=== PATIENT | male | born 1960 | race Caucasian/White ===

== ENCOUNTER → 2021-08-25 12:55 | Outpatient (CLI) | payer OTHER, SELFPAY ==
--- NOTE | 2021-08-25 13:22 | DI.RAD.S_ITS ---
PROCEDURE: XR CHEST 2V INDICATIONS: CHEST CONGESTION TECHNIQUE: 2 views of the chest were acquired. COMPARISON: None. FINDINGS: Surgical changes and devices: None. Lungs and pleura: Interstitium is diffusely prominent. Left basilar pleural effusion and left mid/basilar airspace opacity. No pneumothorax. Mediastinum: Mediastinal contours are normal. Heart size is difficult to assess secondary to the opacity at the left lung base. Bones and chest wall: No suspicious bony abnormalities. Soft tissues appear unremarkable. IMPRESSION: 1. Interstitium is prominent and edema cannot be excluded. 2. Left basilar pleural effusion and mid/basilar airspace opacity consistent compressive atelectasis versus consolidation or patchy pulmonary edema. Left basilar neoplasm cannot be excluded. Continued radiographic surveillance to resolution is recommended. Dictated by: Travis Ramon [facility] Interpreted: Troy Batista MD on 08/25/2021 at 14:12 Transcribed by: GEORGE on 08/25/2021 at 14:15 Approved by: Troy Batista M.D. on 08/25/2021 at 20:00
== END ==
PROVIDERS: PCP Family Medicine; Referring Provider Family Medicine; Visit Provider Family Medicine
DX: R09.89 Other specified symptoms and signs involving the circulatory and respiratory systems (principal); J90 Pleural effusion, not elsewhere classified
CPT/HCPCS: 71046

== ENCOUNTER 2021-08-31 10:47 | Inpatient (IN) | payer OTHER, SELFPAY ==
[2021-08-31] VITALS (24 sets, daily range): BP systolic 96–162; BP diastolic 54–107; PULSE 102–115; RESP 16–34; TEMP 36.1–36.7; O2SAT 93–99; BMI 20.7
--- NOTE | 2021-08-31 | DI.ECHO.S_ITS ---
[facility] +---------+ : : [address] : : : : [id number] : : : : Phone: [phone] Echocardiogram Report + + :Name: ROSLYN TAVAREZ Study Date: 09/01/2021 Height: 74 in : :[facility] ReadingLocation: Weight: 157 lb : : Gender: Male BSA: 2.0 m2 : :: 1960 Age: 61 yrs BP: 123/77 mmHg: :Reason For Study: PERICARDIAL EFFUSION, TAMPONADE : :Ordering Physician: ANGELES, : :CALIXTO Performed By: Karen Loera : :Referring: CALIXTO REYNOSO : + + Interpretation Summary The ejection fraction is estimated to be 55-60%. Diastolic function could not be accurately assessed due to unobtainable data. The right ventricle is normal size. The right ventricular systolic function is normal. No significant valvular abnormalities. Unable to estimate PASP. There is a moderate to large pericardial effusion with evidence of early tamponade physiology however no evidence of RV diastolic collapse. Result discussed with Dr. Reynoso. Procedure: A two-dimensional transthoracic echocardiogram with color flow and Doppler was performed. The study quality was technically adequate. There is no prior echocardiogram noted for this patient. The patient was in sinus tachycardia with heart rates between 100-116 bpm during the exam. Left Ventricle: The left ventricle is normal in size and wall thickness. The ejection fraction is estimated to be 55-60%. Diastolic function could not be accurately assessed due to unobtainable data. Right Ventricle: The right ventricle is normal size. The right ventricular systolic function is normal. Atria: The left atrial size is normal. Right atrial size is normal. There is no Doppler evidence for an interatrial shunt. Mitral Valve: The mitral valve is normal in structure and function. There is no mitral regurgitation. Aortic Valve: The aortic valve is not well visualized. The aortic valve opens well. There is no aortic valve stenosis. No aortic regurgitation is present. Tricuspid Valve: The tricuspid valve is not well visualized, but is grossly normal. There is trace tricuspid regurgitation. Pulmonary artery pressures cannot be estimated because of the lack of a measurable TR jet velocity but the IVC suggests a CVP of around 15 mmHg. Pulmonic Valve: The pulmonic valve is not well visualized. There is no pulmonic valvular regurgitation. Great Vessels: The aortic root is normal size. The dimensions of the ascending aorta are normal. The IVC is dilated (diameter is greater than 2.1 cm) and it collapses less than 50% with a sniff. This suggests a high right atrial pressure of 15 mm Hg. Pericardium/ Pleura There is a moderate to large pericardial effusion noted. There is no evidence of right ventricular diastolic collapse however there is evidence of increased RV diastolic diameter with inspiration.. There is >25% inspiratory reduction in mitral peak E wave velocity. The IVC is dilated and does not collapse by 50% with forced inspiration. There is a very large left- sided pleural effusion. MMode/2D Measurements & Calculations LVIDd: 3.5 cm LVOT diam: 2.0 cm LVIDs: 2.6 cm Ao root diam: 3.3 cm FS: 26.7 % asc Aorta Diam: 3.1 cm IVSd: 0.93 cm Ao Arch Diam (Prox Trans): 3.0 cm LVPWd: 0.91 cm LV poole. diameter/BSA (cm/m^2): 1.8 LV sys. diameter/BSA (cm/m^2): 1.3 LA A2 area: 12.4 cm2 RA long axis: 4.0 cm LA A4 area: 9.1 cm2 RA area: 9.5 cm2 LA length (vol): 4.0 cm RA vol: 19.0 ml LA vol: 23.7 ml RA : 9.7 ml/m2 LA vol index: 12.1 ml/m2 IVC diam: 2.4 cm RVD1 (basal): 3.0 cm TAPSE: 1.4 cm Doppler Measurements & Calculations Ao V2 max: 129.3 cm/sec LVOT Max Cesar: 90.4 cm/sec Ao V2 mean: 96.2 cm/sec LV V1 max P.3 mmHg Ao max P.7 mmHg LV V1 VTI: 14.5 cm Ao mean P.1 mmHg DIONNE(I,D): 2.4 cm2 Ao V2 VTI: 18.4 cm DIONNE(V,D): 2.2 cm2 sev ratio: 0.79 DIONNE indexed to BSA (cm^2/m^2): 1.2 MV E max cesar: 53.0 cm/sec PA V2 max: 135.0 cm/sec MV A max cesar: 59.6 cm/sec PA V2 mean: 77.3 cm/sec MV E/A: 0.89 PA mean P.0 mmHg Med Peak E' Cesar: 8.8 cm/sec PA pr(Accel): 7.1 mmHg E/E' med: 6.0 Lat Peak E' Cesar: 6.3 cm/sec E/E' lat: 8.4 E/e' average: 7.2 MV dec time: 0.18 sec SV(LVOT): 44.9 ml Reading Physician:09:27 AM
--- NOTE | 2021-08-31 11:14 | DI.RAD.S_ITS ---
PROCEDURE: XR CHEST 2V INDICATIONS: shortness of breath TECHNIQUE: 2 views of the chest were acquired. COMPARISON: [facility], CR, XR CHEST 2V, 08/25/2021, 13:01. FINDINGS: Surgical changes and devices: None. Lungs and pleura: Large left pleural effusion, increased. Dependent left lung airspace opacity. No pleural effusion on the right. No pneumothorax. Similar hazy opacity in the left upper lobe and right lower lobe. Mild opacity in the right upper lobe. Mediastinum: Mediastinal contours are grossly similar. Heart size is obscured. Bones and chest wall: No suspicious bony abnormalities. Soft tissues appear unremarkable. IMPRESSION: Large left pleural effusion at which is increased. Scattered areas of airspace opacity. This could be due to pneumonia or atelectasis. Dictated by: Micheal Gerard M.D. on 08/31/2021 at 10:50 Approved by: Micheal Gerard M.D. on 08/31/2021 at 10:53
[2021-08-31 11:42] LABS: COVID19 -Nasal RAPID Negative (Negative)
[2021-08-31 11:46] LABS: Add Manual Diff / Slide Review NO; Basophils Absolute Auto 0 /uL (0-100); Basophils Percent Auto 0.2 % (0-2); Eosinophils Absolute Auto 0 /uL (0-450); Eosinophils Percent Auto 0.1 % (2-4); Hematocrit 34.8 % (41-53); Hemoglobin 11.7 g/dL (13.5-17.5); Lymphocytes Absolute Auto 500 /uL (1100-4500); Lymphocytes Percent Auto 4.8 % (25-40); Mean Corpuscular HGB Conc 33.8 % (30-36); Mean Corpuscular Hemoglobin 27.8 PG (26-34); Mean Corpuscular Volume 82.3 fL (80-100); Monocytes Absolute Auto 1100 /uL (0-900); Monocytes Percent Auto 10.2 % (3-14); Neutrophils Absolute Auto 8800 /uL (1500-7000); Neutrophils Percent Auto 84.7 % (50-75); Platelet Count 356 X10^3/uL (150-400); Red Blood Cell Count 4.22 X10^6/uL (4.5-5.9); Red Cell Distribution Width 14.2 % (11.6-14.8); White Blood Cell Count 10.4 X10^3/uL (4.5-11.0)
[2021-08-31 11:52] LABS: Alanine Aminotransferase 21 IU/L (<50); Albumin 3.5 g/dL (3.5-5.0); Alkaline Phosphatase 127 U/L (38-126); Aspartate Aminotransferase 37 IU/L (17-59); BUN Creatinine Ratio 23.3 (6-22); Bilirubin Total 1.2 mg/dL (0.2-1.3); Blood Urea Nitrogen 17 mg/dL (9-20); Calcium 9.2 mg/dL (8.4-10.2); Carbon Dioxide 27 mmol/L (22-32); Chloride 87 mmol/L (98-107); Estimated Glomerular Filt Rate > 60.0 mL/min (>60); Globulin 3.5 g/dL (1.7-4.1); Glucose 127 mg/dL (70-100); HEMOLYSIS < 15 (0-50); Lactate (Lactic Acid) 2.9 mmol/L (0.7-2.1); Potassium 4.3 mmol/L (3.4-5.1); Sodium 123 mmol/L (137-145)
--- NOTE | 2021-08-31 11:57 | ED_ITS ---
HPI - SOB/Dyspnea General Chief Complaint: Shortness of Breath/Dyspnea Stated Complaint: Trouble breathing- chronic pneumonia Time Seen by Provider: 08/31/21 11:48 Source: patient Mode of arrival: Family Vehicle Limitations: no limitations History of Present Illness HPI Narrative: The patient presents with fatigue, productive cough, and dyspnea. He was diagnosed with pneumonia about 3 weeks ago by his PCM. He was treated with Keflex. He has no fever chills. He has experienced a 20 lb weight loss in recent weeks. He is a long time smoker. He has no underlying cardiac or pulmonary disease. He has received COVID vaccines and a booster. He has not had active COVID. He has no headache, or sore throat. With the dyspnea, he has no orthopnea or peripheral edema. Related Data Allergies Allergy/AdvReac Type Severity Reaction Status Date / Time Penicillins Allergy Verified 08/31/21 13:05 Review of Systems Constitutional Constitutional: Reports body ache(s), Reports chills, Reports fatigue, Denies fever(s) and Denies headache(s) Comments: No headaches. Eyes Eyes: Denies change in vision ENT Ears, Nose, Mouth, and Throat: Denies vertigo, Denies dizziness, Denies headache(s), Denies sinus pressure and Denies sore throat Cardiovascular Cardiovascular: Denies chest pain, Denies rapid heart rate, Denies pedal edema, Denies edema and Reports dyspnea Respiratory Respiratory: Reports cough, Denies hemoptysis and Reports dyspnea Gastrointestinal Gastrointestinal: Denies abdominal pain, Denies loose stools and Denies nausea Genitourinary Comments: No urinary complaints. Musculoskeletal Musculoskeletal: Reports myalgias and Reports myalgias Integumentary/Breasts Skin/Breast: Denies change in pigmentation and Denies rash Neurologic Neurologic: Denies confusion, Denies vertigo, Denies dizziness and Denies headache(s) Psychiatric Psychiatric: Denies confusion and Denies depression Endocrine Endocrine: Reports fatigue Hematologic/Lymphatic On Anticoagulants: No Patient History Medical History (Updated 08/31/21 @ 18:35 by Mich Inman MD) Tobacco abuse Surgical History (Updated 08/31/21 @ 18:22 by Mich Inman MD) No significant past surgical history Social History Smoking Status: Former smoker Smoking Status: Current every day smoker tobacco type: cigarettes alcohol intake frequency: 0-2 drinks per day Substance Use Type: does not use Exam Initial Vital Signs Initial Vital Signs: Vital Signs Pulse Rate 114 H 08/31/21 11:05 Respiratory Rate 25 H 08/31/21 11:05 Pulse Oximetry 95 08/31/21 11:05 Const General: cooperative, well groomed, No anxious, frail appearing and ill appearing [facility] Head: normocephalic and atraumatic Face and sinus: normal facial exam Throat: posterior oropharynx normal Eyes General: appearance normal, both eyes and all related structures Pupils: PERRL EOM: EOM intact bilaterally Neck Neck: full ROM, supple and No JVD Chest Chest: normal inspection of the chest Resp Other: Decreased breath sounds in the left lower lung. Bilateral rales. Cardio Palpation: normal PMI Rate: regular rate Rhythm: regular rhythm Heart Sounds: S1 normal, S2 normal, no click and no murmurs GI Inspection: normal to inspection Back/Spine/Pelvis Back: normal to inspection, No back tenderness, No CVA tenderness and No ecchymosis Skin General: pallor Lesions: no lesions Rashes: no rashes Neuro General: patient alert, patient awake, patient oriented x3 and no focal motor deficits Extrem General: normal to inspection, full ROM and no pedal edema Psych Mental Status: mental status grossly normal Course Course Course Narrative: Patient has an elevated lactic acid, the WBC count is normal. He has no fever. Chest x-ray revealed a large pleural effusion, suggestive of pneumonia. CT of chest shows no evidence of PE. There is a large left pleural effusion and pericardial effusion. He has metastatic cancer, throughout his lungs, his liver and his spine. I discussed the situation with the radiologist, the primary is not obvious but he would suggest maybe the left middle lung. Findings would be amenable to a supraclavicular biopsy or liver biopsy. The patient was initially IV hydrated. Was given Rocephin and Zithromax, potentially treated for sepsis. When talking to the radiologist, he said he cannot distinguish a potential infection versus some of the probable cancer findings. Due to the pericardial effusion, IV boluses were curtailed. I discussed the clinical findings with the patient. I presented the case to the hospitalist, Dr. Sutherland. Discussion included ongoing IV antibiotics, and echo, and ultrasound-guided thoracentesis. Thoracentesis may provide a sample leading to clinical diagnosis. The patient is normotensive with a heart rate of 100 at the time of admission. O2 sats on room air are 95%. Orders Ordered: ED Orders 08/31/21 11:08 COVID19 -Nasal swab/Pre-Proc Stat 08/31/21 11:14 XR chest 2V Stat EKG-12 Lead Stat Measure peak expiratory flow ONCE RT Consult Eval and Treat Now 08/31/21 11:30 BNP [NT-proBNP (BNP-Adult 18+)] Stat Complete Blood Count AUTO DIFF Stat Comprehensive Metabolic Panel Stat D Dimer Stat Lactate (Lactic Acid) Stat Troponin & CK Cardiac Panel Stat 08/31/21 12:27 CT angio chest PE protocol Stat 08/31/21 13:00 Blood Culture Stat 08/31/21 17:02 Lactate (Lactic Acid) Stat 09/01/21 05:00 US thoracentesis Urgent Basic Metabolic Panel Routine Body Fluid Culture Stat Complete Blood Count AUTO DIFF Routine LDH Body Fluid Urgent Lactate (Lactic Acid) Routine 09/01/21 17:00 Total Protein Body Fluid Urgent pH Body Fluid Urgent 09/08/21 05:00 Troponin I Routine Acetaminophen (Acetaminophen 325 Mg Tablet) 650 mg PO Q6HR PRN PRN Reason: pain Ceftriaxone Sodium 1,000 mg/ (Sodium Chloride) 100 mls @ 200 mls/hr IV DAILY TG Azithromycin 500 mg/ Dextrose 250 mls @ 250 mls/hr IV DAILY TG Ondansetron HCl (Ondansetron 4 Mg/2 Ml Inj) 4 mg IV Q8HR PRN PRN Reason: Nausea And Vomiting Discontinued Medications Albuterol/Ipratropium (Albuterol/Ipratropium 3 Ml Ampul) 3 ml INH NOW ONE Stop: 08/31/21 12:16 Last Admin: 08/31/21 12:17 Dose: 3 ml Documented by: KATIE Sodium Chloride (Normal Saline 0.9%) 1,000 mls @ 1,000 mls/hr IV BOLUS ONE Stop: 08/31/21 12:53 Last Infusion: 08/31/21 14:42 Dose: 0 mls/hr Documented by: Admin: 08/31/21 13:06 Dose: 1,000 mls/hr Documented by: ORA Ceftriaxone Sodium 1,000 mg/ (Sodium Chloride) 100 mls @ 200 mls/hr IV NOW ONE Stop: 08/31/21 12:27 Last Infusion: 08/31/21 13:58 Dose: 0 mls/hr Documented by: Admin: 08/31/21 13:06 Dose: 200 mls/hr Documented by: ORA Sodium Chloride (Normal Saline 0.9%) 1,000 mls @ 1,000 mls/hr IV BOLUS ONE Stop: 08/31/21 16:36 Last Admin: 08/31/21 15:56 Dose: 1,000 mls/hr Documented by: ORA Azithromycin 500 mg/ Dextrose 250 mls @ 250 mls/hr IV NOW ONE Stop: 08/31/21 15:38 Last Infusion: 08/31/21 17:01 Dose: 0 mls/hr Documented by: Admin: 08/31/21 15:55 Dose: 250 mls/hr Documented by: ORA Vital Signs Vital signs: Vital Signs - 8 hr 08/31/21 11:05 08/31/21 11:06 08/31/21 11:14 Temperature 98.1 F Pulse Rate 114 H 115 H 115 H Respiratory Rate 25 H 23 34 H Blood Pressure 162/107 H 162/107 H Pulse Oximetry 95 97 97 08/31/21 11:30 08/31/21 12:00 08/31/21 12:17 Temperature Pulse Rate 107 H 106 H 108 H Respiratory Rate 32 H 25 H 20 Blood Pressure 145/94 H Pulse Oximetry 97 97 97 08/31/21 12:30 08/31/21 13:00 08/31/21 13:30 Temperature Pulse Rate 109 H 104 H 105 H Respiratory Rate 22 22 21 Blood Pressure 126/85 121/82 Pulse Oximetry 99 97 96 08/31/21 14:00 08/31/21 14:30 08/31/21 15:00 Temperature Pulse Rate 102 H 105 H 104 H Respiratory Rate 22 28 H 21 Blood Pressure 116/70 125/64 117/81 Pulse Oximetry 95 95 96 08/31/21 15:30 08/31/21 16:00 08/31/21 16:30 Temperature Pulse Rate 102 H 106 H 107 H Respiratory Rate 18 21 25 H Blood Pressure 112/54 L 113/68 135/75 Pulse Oximetry 95 96 95 08/31/21 17:00 08/31/21 17:01 08/31/21 17:30 Temperature Pulse Rate 104 H 104 H 105 H Respiratory Rate 21 21 24 Blood Pressure 96/67 100/70 Pulse Oximetry 95 95 94 MDM - SOB/Dyspnea Lab Data Result diagrams: 08/31/21 11:30 08/31/21 11:30 Labs: Lab Results 08/31/21 08/31/21 08/31/21 Range/Units 11:08 11:30 11:30 WBC 10.4 (4.5-11.0) X10^3/uL RBC 4.22 L (4.5-5.9) X10^6/uL Hgb 11.7 L (13.5-17.5) g/dL Hct 34.8 L (41-53) % MCV 82.3 (80-100) fL MCH 27.8 (26-34) PG MCHC 33.8 (30-36) % RDW 14.2 (11.6-14.8) % Plt Count 356 (150-400) X10^3/uL Neut % (Auto) 84.7 H (50-75) % Lymph % (Auto) 4.8 L (25-40) % [place] % (Auto) 10.2 (3-14) % Eos % (Auto) 0.1 L (2-4) % Baso % (Auto) 0.2 (0-2) % Neut # (Auto) 8800 H (8312-4710) /uL Lymph # (Auto) 500 L (7188-2809) /uL [place] # (Auto) 1100 H (0-900) /uL Eos # (Auto) 0 (0-450) /uL Baso # (Auto) 0 (0-100) /uL D-Dimer (<230) ng/mL Sodium 123 L (137-145) mmol/L Potassium 4.3 (3.4-5.1) mmol/L Chloride 87 L (98-107) mmol/L Carbon Dioxide 27 (22-32) mmol/L BUN 17 (9-20) mg/dL Creatinine 0.73 (0.66-1.25) mg/dL Estimated GFR > 60.0 (>60) mL/min BUN/Creatinine Ratio 23.3 H (6-22) Glucose 127 H (70-100) mg/dL Lactate (0.7-2.1) mmol/L Calcium 9.2 (8.4-10.2) mg/dL Total Bilirubin 1.2 (0.2-1.3) mg/dL AST 37 (17-59) IU/L ALT 21 (<50) IU/L Alkaline Phosphatase 127 H (38-126) U/L Total Creatine Kinase (55-170) U/L CK-MB (CK-2) CK-MB (CK-2) Rel Index Troponin I (0.01-0.034) ng/mL NT-Pro-B Natriuret Pep (<125) pg/mL Total Protein 7.0 (6.3-8.2) g/dL Albumin 3.5 (3.5-5.0) g/dL Globulin 3.5 (1.7-4.1) g/dL Albumin/Globulin Ratio 1.0 (1.0-2.8) SARS-CoV-2 (PCR) Negative (Negative) 08/31/21 08/31/21 08/31/21 Range/Units 11:30 11:30 11:30 WBC (4.5-11.0) X10^3/uL RBC (4.5-5.9) X10^6/uL Hgb (13.5-17.5) g/dL Hct (41-53) % MCV (80-100) fL MCH (26-34) PG MCHC (30-36) % RDW (11.6-14.8) % Plt Count (150-400) X10^3/uL Neut % (Auto) (50-75) % Lymph % (Auto) (25-40) % [place] % (Auto) (3-14) % Eos % (Auto) (2-4) % Baso % (Auto) (0-2) % Neut # (Auto) (4423-3912) /uL Lymph # (Auto) (4252-5250) /uL [place] # (Auto) (0-900) /uL Eos # (Auto) (0-450) /uL Baso # (Auto) (0-100) /uL D-Dimer 3376 H (<230) ng/mL Sodium (137-145) mmol/L Potassium (3.4-5.1) mmol/L Chloride (98-107) mmol/L Carbon Dioxide (22-32) mmol/L BUN (9-20) mg/dL Creatinine (0.66-1.25) mg/dL Estimated GFR (>60) mL/min BUN/Creatinine Ratio (6-22) Glucose (70-100) mg/dL Lactate 2.9 H (0.7-2.1) mmol/L Calcium (8.4-10.2) mg/dL Total Bilirubin (0.2-1.3) mg/dL AST (17-59) IU/L ALT (<50) IU/L Alkaline Phosphatase (38-126) U/L Total Creatine Kinase 30 L (55-170) U/L CK-MB (CK-2) TNP CK-MB (CK-2) Rel Index TNP Troponin I 0.100 H (0.01-0.034) ng/mL NT-Pro-B Natriuret Pep 154 H (<125) pg/mL Total Protein (6.3-8.2) g/dL Albumin (3.5-5.0) g/dL Globulin (1.7-4.1) g/dL Albumin/Globulin Ratio (1.0-2.8) SARS-CoV-2 (PCR) (Negative) 08/31/21 Range/Units 16:15 WBC (4.5-11.0) X10^3/uL RBC (4.5-5.9) X10^6/uL Hgb (13.5-17.5) g/dL Hct (41-53) % MCV (80-100) fL MCH (26-34) PG MCHC (30-36) % RDW (11.6-14.8) % Plt Count (150-400) X10^3/uL Neut % (Auto) (50-75) % Lymph % (Auto) (25-40) % [place] % (Auto) (3-14) % Eos % (Auto) (2-4) % Baso % (Auto) (0-2) % Neut # (Auto) (5479-3612) /uL Lymph # (Auto) (4762-9483) /uL [place] # (Auto) (0-900) /uL Eos # (Auto) (0-450) /uL Baso # (Auto) (0-100) /uL D-Dimer (<230) ng/mL Sodium (137-145) mmol/L Potassium (3.4-5.1) mmol/L Chloride (98-107) mmol/L Carbon Dioxide (22-32) mmol/L BUN (9-20) mg/dL Creatinine (0.66-1.25) mg/dL Estimated GFR (>60) mL/min BUN/Creatinine Ratio (6-22) Glucose (70-100) mg/dL Lactate 2.8 H (0.7-2.1) mmol/L Calcium (8.4-10.2) mg/dL Total Bilirubin (0.2-1.3) mg/dL AST (17-59) IU/L ALT (<50) IU/L Alkaline Phosphatase (38-126) U/L Total Creatine Kinase (55-170) U/L CK-MB (CK-2) CK-MB (CK-2) Rel Index Troponin I (0.01-0.034) ng/mL NT-Pro-B Natriuret Pep (<125) pg/mL Total Protein (6.3-8.2) g/dL Albumin (3.5-5.0) g/dL Globulin (1.7-4.1) g/dL Albumin/Globulin Ratio (1.0-2.8) SARS-CoV-2 (PCR) (Negative) Critical Care Time Critical Care Time Critical Care Time: Yes Total Critical Care Time: 60 Attestation: Critical care time included the initial assessment of the patient. Radiology, lab and EKG data were reviewed. The situation was discussed with multiple physicians as noted above. Patient was informed of the clinical situation. Admission was arranged. Discharge Plan Departure Patient Disposition: Admitted as Observation Clinical Impression: Sepsis, Pleural effusion associated with pulmonary infection, Effusion, pericardium, Metastatic cancer Referrals: Mich Kraft MD [Primary Care Provider] -
[2021-08-31 12:08] LABS: Creatine Kinase 30 U/L (55-170)
[2021-08-31] MEDS: ALBUTEROL/IPRATROPIUM 3 ML AMPUL INH (12:17)
[2021-08-31 12:19] LABS: D Dimer 3376 ng/mL (<230)
[2021-08-31 12:22] LABS: NT-proBNP (BNP-Adult 18+) 154 pg/mL (<125)
--- NOTE | 2021-08-31 12:27 | DI.CT.S_ITS ---
PROCEDURE: CT ANGIO CHEST PE PROTOCOL INDICATIONS: Pleural effusion. Rule out PE. TECHNIQUE: After the administration of intravenous contrast, 2 mm thick sections acquired from the pulmonary apices to the posterior costophrenic angles. 3-dimensional maximum intensity projection (MIP) coronal and sagittal reformats were then acquired through the thorax. For radiation dose reduction, the following was used: automated exposure control, adjustment of mA and/or kV according to patient size. COMPARISON: None. FINDINGS: Image quality: Excellent. Pulmonary arteries: Pulmonary arteries are normal in size, and demonstrate no intraluminal filling defects to suggest central pulmonary embolism. Lungs and pleura: Multiple pulmonary nodules. For example: -right upper lobe 1.9 x 1.7 cm, (6/74). -right lower lobe 01.4 x 1.3 cm, (6/173). Nodular opacity in the left lung is also suspicious for malignancy. There is thickening in the left hilar region. Collapse of the left lower lobe. There are secretions in the trachea and bronchi. There is bronchial wall thickening. There is interlobular septal thickening. Large left pleural effusion. No right pleural effusion. No pneumothorax. Mediastinum: Heart size is within normal limits. There is a moderate size pericardial effusion. There is extensive mediastinal and hilar adenopathy. For example: -left paraesophageal node measuring 2.2 cm, (5/101). -right hilar node measuring 2.4 cm, (5/79). -right paratracheal node measuring 1.8 cm, (5/61). -right anterior mediastinal node measuring 2.2 cm, (5/60). Thoracic aorta is normal in caliber and enhancement. No aortic dissection. Esophagus is normal in caliber, without hiatal hernia. Bones and chest wall: T5 lytic and sclerotic lesion, (/72).. Ribs and thoracic spine appear intact throughout. Thyroid gland is unremarkable. Multiple supraclavicular lymph nodes. No axillary adenopathy. Visualized upper abdomen: Numerous hypodense hepatic metastases. A lesion in the right lobe of the liver at the dome measuring 1.4 cm, (5/152). There are ill-defined lymph nodes in the perigastric region. There is abnormal thickening along the left diaphragm seen. IMPRESSION: 1. No pulmonary embolism. 2. Large left pleural effusion. Moderate pericardial effusion. Collapse of the left lower lobe. Secretions in the trachea and bronchi. Bronchial wall thickening. 3. Multiple metastatic pulmonary nodules. Metastatic mediastinal, hilar, supraclavicular, and perigastric adenopathy. 4. Metastatic liver lesions. 5. Metastatic lesion at T5. Comment: Findings were discussed with Mich Inman at the time of dictation. Reports history of smoking. Suspect primary lung cancer. Ultrasound-guided liver biopsy or supraclavicular node biopsy could be considered for tissue diagnosis. PET/CT may be helpful for further evaluation. Dictated by: Micheal Gerard M.D. on 08/31/2021 at 12:00 Approved by: Micheal Gerard M.D. on 08/31/2021 at 12:19
[2021-08-31] MEDS: SODIUM CHLORIDE 0.9% 1,000 ML 1000 ML IV ×2 (13:06→15:56)
[2021-08-31] MEDS: cefTRIAXone 1,000 MG in SODIUM CHLORIDE 0.9% 100 ML 200 ML IV (13:06)
[2021-08-31 13:39] LABS: Reflexed Lactate in 2 Hours Y
[2021-08-31] MEDS: AZITHROMYCIN 500 MG in DEXTROSE 5% IN WATER 250 ML IV (15:55)
[2021-08-31 16:33] LABS: Lactate 2HR (Lactic Acid Rflx) 2.8 mmol/L (0.7-2.1)
[2021-08-31 19:40] LABS: Lactate (Lactic Acid) 2.7 mmol/L (0.7-2.1)
--- NOTE | 2021-08-31 19:54 | P.HP_ITS ---
History of Present Illness History of Present Illness Date Patient Seen: 08/31/21 Time Patient Seen: 21:30 Chief complaint: Trouble breathing- chronic pneumonia Narrative: Tutu Baltazar is a 61 y.o. patient who presented with fatigue, productive cough w/white frothy sputem, and dyspnea. Stated he is unable to walk 1/2 block.? He was diagnosed with pneumonia about 3 weeks ago by his PCP and has been taking po Keflex since 08/19/21. States his ribs hurt front to back. He denies fever chills, does endorse a 20 lb weight loss in recent weeks stating food does not taste good to him.? He states is a long time smoker who tapered down significantly 8 weeks ago, completely ceased 2 weeks ago.? He denies underlying cardiac or pulmonary disease.? He has received COVID-19 vaccines and a booster and has not had active COVID-19.? Denies headache, or sore throat, nausea or vomiting, dysurea, diarrhea or constipation. Denies orthopnea or upper or lower extremity edema. Chest CTA done in the emergency department did indicate study for pulmonary embolism was negative, but he has a large left pleural effusion and a moderate size pericardial effusion. He has a collapse of the left lower lobe. Secretions are in the trachea and bronchi. It also identified multiple metastatic pulmonary nodules, metastatic mediastinal hilar supraclavicular and perigastric adenopathy and metastatic liver lesions. It also noted metastatic lesions at T5. He is afebrile, blood pressure is elevated of 156/90, his heart rate is 112, respiratory rate 26, oxygen saturation of 95% on room air he weighs 73.4 kg with a BMI of 20.7. He is mildly anemic with a hemoglobin and hemat ocrit of 11.7 and 34.8 respectively platelet count is 356, does have a mild left shift of 8800, D-dimer was 09/18/2075 though was ruled out for a PE, sodium 123, potassium 4.3, chloride 87, glucose 127, lactate was elevated at 2.3 down from 2.9 on initial presentation to the emergency department, alk-phos 127, troponin was 0.097 now trending down, proBNP is 154, COVID-19 PCR is negative. Patient History Medical History (Updated 09/01/21 @ 00:23 by CEE Lizarraga) Degenerative disc disease Tobacco dependency Surgical History (Updated 09/01/21 @ 00:23 by CEE Lizarraga) History of testicular surgery Family & Social History Family History (Updated 09/01/21 @ 00:25 by CEE Lizarraga) Mother COPD (chronic obstructive pulmonary disease) Father Myocardial infarction Safety & Behavioral: Feels Safe in Current Yes Environment Been Physically Hurt or No Threatened By a Person Tobacco & Substance use: Smoking Status Current every day smoker alcohol intake frequency 0-2 drinks per day Substance Use Type does not use Meds Home Medications and Allergies Home Medications Medication Instructions Recorded Confirmed Type budesonide 160 mcg-glycopyr 9 2 inh INHALATION BID 08/31/21 08/31/21 History mcg-formot 4.8 mcg/actuation HFA inhaler ([employer]) Allergies Allergy/AdvReac Type Severity Reaction Status Date / Time Penicillins Allergy Verified 08/31/21 13:05 Review of Systems Review of Systems ROS: Yes All systems reviewed with the patient and are negative except as otherwise documented Exam Vital Signs (past 8 hours): - 08/31/21 12:00 08/31/21 12:17 08/31/21 12:30 Pulse Rate 106 H 108 H 109 H Respiratory Rate 25 H 20 22 Blood Pressure Pulse Oximetry 97 97 99 08/31/21 13:00 08/31/21 13:30 08/31/21 14:00 Pulse Rate 104 H 105 H 102 H Respiratory Rate 22 21 22 Blood Pressure 126/85 121/82 116/70 Pulse Oximetry 97 96 95 08/31/21 14:30 08/31/21 15:00 08/31/21 15:30 Pulse Rate 105 H 104 H 102 H Respiratory Rate 28 H 21 18 Blood Pressure 125/64 117/81 112/54 L Pulse Oximetry 95 96 95 08/31/21 16:00 08/31/21 16:30 08/31/21 17:00 Pulse Rate 106 H 107 H 104 H Respiratory Rate 21 25 H 21 Blood Pressure 113/68 135/75 Pulse Oximetry 96 95 95 08/31/21 17:01 08/31/21 17:30 Pulse Rate 104 H 105 H Respiratory Rate 21 24 Blood Pressure 96/67 100/70 Pulse Oximetry 95 94 Oxygen Delivery Method Room Air Narrative Exam Narrative: Gen: Alert, oriented, cachectic and ill appearing 61 y.o. male, NAD HEENT: normocephalic, atraumatic, conjunctiva clear, sclera non-icteric, oral mucosa pink and moist Neck: supple, full ROM, no JVD, trachea is midline Resp: Lungs CTA, non-labored breathing CV: Tachycardic, no murmur or rubs Abd: soft, non-tender, normoactive BTs Skin: Jaundiced, no lesions or rashes, dry and intact Neuro: Alert and oriented X 4 w/no focal deficits. Speech clear and coherent. Extremities: moves all 4 extremities, is ambulatory, negative Sandra?s sign Psyche: normal mood and affect. Objective Labs Result Diagrams: 08/31/21 11:30 08/31/21 11:30 Labs: Laboratory Results - last 24 hr 08/31/21 08/31/21 08/31/21 11:08 11:30 11:30 WBC 10.4 RBC 4.22 L Hgb 11.7 L Hct 34.8 L MCV 82.3 MCH 27.8 MCHC 33.8 RDW 14.2 Plt Count 356 Neut % (Auto) 84.7 H Lymph % (Auto) 4.8 L [place] % (Auto) 10.2 Eos % (Auto) 0.1 L Baso % (Auto) 0.2 Neut # (Auto) 8800 H Lymph # (Auto) 500 L [place] # (Auto) 1100 H Eos # (Auto) 0 Baso # (Auto) 0 D-Dimer Sodium 123 L Potassium 4.3 Chloride 87 L Carbon Dioxide 27 BUN 17 Creatinine 0.73 Estimated GFR > 60.0 BUN/Creatinine Ratio 23.3 H Glucose 127 H Lactate Calcium 9.2 Total Bilirubin 1.2 AST 37 ALT 21 Alkaline Phosphatase 127 H Total Creatine Kinase CK-MB (CK-2) CK-MB (CK-2) Rel Index Troponin I NT-Pro-B Natriuret Pep Total Protein 7.0 Albumin 3.5 Globulin 3.5 Albumin/Globulin Ratio 1.0 SARS-CoV-2 (PCR) Negative 08/31/21 08/31/21 08/31/21 11:30 11:30 11:30 WBC RBC Hgb Hct MCV MCH MCHC RDW Plt Count Neut % (Auto) Lymph % (Auto) [place] % (Auto) Eos % (Auto) Baso % (Auto) Neut # (Auto) Lymph # (Auto) [place] # (Auto) Eos # (Auto) Baso # (Auto) D-Dimer 3376 H Sodium Potassium Chloride Carbon Dioxide BUN Creatinine Estimated GFR BUN/Creatinine Ratio Glucose Lactate 2.9 H Calcium Total Bilirubin AST ALT Alkaline Phosphatase Total Creatine Kinase 30 L CK-MB (CK-2) TNP CK-MB (CK-2) Rel Index TNP Troponin I 0.100 H NT-Pro-B Natriuret Pep 154 H Total Protein Albumin Globulin Albumin/Globulin Ratio SARS-CoV-2 (PCR) 08/31/21 08/31/21 16:15 19:20 WBC RBC Hgb Hct MCV MCH MCHC RDW Plt Count Neut % (Auto) Lymph % (Auto) [place] % (Auto) Eos % (Auto) Baso % (Auto) Neut # (Auto) Lymph # (Auto) [place] # (Auto) Eos # (Auto) Baso # (Auto) D-Dimer Sodium Potassium Chloride Carbon Dioxide BUN Creatinine Estimated GFR BUN/Creatinine Ratio Glucose Lactate 2.8 H 2.7 H Calcium Total Bilirubin AST ALT Alkaline Phosphatase Total Creatine Kinase CK-MB (CK-2) CK-MB (CK-2) Rel Index Troponin I NT-Pro-B Natriuret Pep Total Protein Albumin Globulin Albumin/Globulin Ratio SARS-CoV-2 (PCR) Assessment & Plan Assessment & Plan narrative: Tutu Baltazar is a 61-year-old unfortunate male is admitted with an newly diagnosed left lower lobe lung cancer and persistent pneumonia 1. Newly diagnosed left lower lobe lung cancer, present on admission * He is ordered for an urgent thoracentesis to drain the left pleural effusion and to send off fluid for cytology, culture, and fluid biopsy * He will need referral to Oncology * Metastatic liver lesions were seen on the CTA and biopsy of the liver is rec ommended. 2. Pericardial effusion, acute, present on admission * Complete echocardiogram tomorrow morning to assess cardiac strain * 3rd troponin is trending downward and series is now stopped * If he becomes hemodynamically unstable, may need transfer to facility where they can perform a cardiocentesis. 3. Sepsis, in the setting of likely pneumonia and left pleural effusion, acute, present on admission * Lactate was markedly elevated on admission of 2.9 it is now 2.3 * Will provide IV normal saline at 125 mL/hour 3. Unintended weight loss, present on admission * Likely due to metastatic process * May require nutritional consult 4. Tobacco dependency, patient has ceased smoking VTE Prophylaxis: Wells risk score 8.5 Enoxaparin 40 mg subQ once daily Bilateral SCDs Patient is admitted to the inpatient service due to the severity of disease, risks of further disease progression and this stay is expected to exceed 2 midnights. FEN: IV fluids: NS at 125 mls/hour, diet: General, labs: CBC, C/BMP, liver enzymes, Mag, PT/INR Consultants None Dispo: Unknown at this time Code status: Full code as discussed with the patient who identifies his spouse Lea as his surrogate and POA. [X] I have utilized all available immediate resources to obtain, update, or review of the patient's current medications COVID-19 COVID-19 status: Negative Result date/Date tested (Pos, Neg/Pending): 09/01/21 Scores Wells' Criteria for PE Clinical signs and symptoms of DVT: Yes PE is #1 Dx or equally likely: Yes Heart rate > 100: Yes Immobilization at least 3 days or surg in previous 4 weeks: No History of PE or DVT: No Hemoptysis: No Malignancy w/Treatment within 6 months or palliative: Yes Wells' PE Score total: 8.5 Quality VTE Deep Vein Thrombosis/Pulmonary Embolism Present on Admission: No MIPS - Admit I confirm the patient?s Advance Care Plan is present, Code status is documented, Surrogate decision maker is in patient?s record [If Yes, STOP here]: Yes MIPS - DC The patient has current or prior documentation of left ventricular ejection fraction (LVEF) less than 40%, or moderate or severely depressed left ventricular systolic function.: No
--- NOTE | 2021-08-31 20:53 | PC.NURSE ---
admit pt to [facility] from ED approx 2024. VSS. SOB with any exertion/activity. RA, sats WNL. Pt states started feeling ill around June and has had a continued decline. States has not had appetite for quite a while and reports significant weight loss. Tele monitor on. SCDs on BLEs. Alert and oriented. Instructed to use call light for needs and prior to any activity for assist.
--- NOTE | 2021-08-31 21:19 | PC.NURSE ---
Patient is alert and oriented. Breath sounds with inspiratory/expiratory rhonchi in right lobes and very diminished in left lobes. States he has an intermittent cough productive of frothy, white sputum. Able to speak in complete sentences but becomes very SOB with minimal exertion; RA sat 95% HRR but tachy at 112bpm and BP elevated at 156/99. Telemetry reading was ST. Denies nausea. BT hypoactive but soft and non-tender and states he is passing flatus. Does report a 20# weight loss over past couple months. Denies dysuria, frequency or urgency with urination. Is able to shift his weight in bed but moves minimally related to SOB. Gait not assessed at this time. Bilateral calf SCD's applied. Patient states he has 10/10 upper body/rib pain related to coughing; Candelario MIKE informed and currently awaiting pain medication orders. Fall risk score is moderate.
[2021-08-31 21:28] LABS: Reflexed Lactate in 2 Hours Y
[2021-08-31] MEDS: TRAMADOL 50 MG TABLET PO (22:34)
[2021-08-31 22:48] LABS: Lactate 2HR (Lactic Acid Rflx) 2.3 mmol/L (0.7-2.1)
[2021-08-31 23:01] LABS: Troponin I 0.097 ng/mL (0.01-0.034)
[2021-09-01] VITALS (15 sets, daily range): BP systolic 118–139; BP diastolic 77–96; PULSE 100–110; RESP 16–24; TEMP 36.2–36.6; O2SAT 93–109
[2021-09-01 06:25] LABS: Add Manual Diff / Slide Review NO; Basophils Absolute Auto 0 /uL (0-100); Basophils Percent Auto 0.1 % (0-2); Eosinophils Absolute Auto 0 /uL (0-450); Eosinophils Percent Auto 0.2 % (2-4); Hematocrit 31.7 % (41-53); Hemoglobin 10.6 g/dL (13.5-17.5); Lymphocytes Absolute Auto 600 /uL (1100-4500); Lymphocytes Percent Auto 6.1 % (25-40); Mean Corpuscular HGB Conc 33.4 % (30-36); Mean Corpuscular Hemoglobin 27.6 PG (26-34); Mean Corpuscular Volume 82.5 fL (80-100); Monocytes Absolute Auto 1000 /uL (0-900); Monocytes Percent Auto 9.6 % (3-14); Neutrophils Absolute Auto 8800 /uL (1500-7000); Platelet Count 327 X10^3/uL (150-400); Red Blood Cell Count 3.84 X10^6/uL (4.5-5.9); Red Cell Distribution Width 14.2 % (11.6-14.8); White Blood Cell Count 10.5 X10^3/uL (4.5-11.0)
[2021-09-01 06:32] LABS: Lactate (Lactic Acid) 2.3 mmol/L (0.7-2.1)
[2021-09-01 06:33] LABS: BUN Creatinine Ratio 26.4 (6-22); Blood Urea Nitrogen 19 mg/dL (9-20); Calcium 8.6 mg/dL (8.4-10.2); Carbon Dioxide 27 mmol/L (22-32); Chloride 90 mmol/L (98-107); Estimated Glomerular Filt Rate > 60.0 mL/min (>60); Glucose 112 mg/dL (70-100); HEMOLYSIS < 15 (0-50); Potassium 4.8 mmol/L (3.4-5.1); Sodium 123 mmol/L (137-145)
[2021-09-01] MEDS: cefTRIAXone 1,000 MG in SODIUM CHLORIDE 0.9% 100 ML 200 ML IV (08:15)
[2021-09-01 08:20] LABS: Reflexed Lactate in 2 Hours Y
[2021-09-01] MEDS: SODIUM CHLORIDE 0.9% FLUSH 10 ML IV ×2 (08:35→19:29)
[2021-09-01] MEDS: ALBUTEROL 2.5 MG/3 ML NEB (ADULT) INH (09:07)
[2021-09-01] MEDS: AZITHROMYCIN 500 MG in DEXTROSE 5% IN WATER 250 ML IV (09:07)
[2021-09-01 09:17] LABS: INR 1.3 (0.9-1.3); Prothrombin Time 14.9 SECONDS (10.1-12.7)
[2021-09-01 09:20] LABS: PTT Partial Thromboplastin Tim 28 SECONDS (26.4-36.2)
--- NOTE | 2021-09-01 10:19 | PM.DS.1 ---
History of Present Illness <Michael Bonilla DO - Last Filed: 09/01/21 11:16> History of Present Illness Date Patient Seen: 09/01/21 Time Patient Seen: 10:20 Chief complaint: Trouble breathing- chronic pneumonia Narrative: Per CEE Lizarraga: Roslyn Baltazar is a 61 y.o. patient who presented with fatigue, productive cough w/white frothy sputem, and dyspnea. Stated he is unable to walk 1/2 block.? He was diagnosed with pneumonia about 3 weeks ago by his PCP and has been taking po Keflex since 08/19/21. States his ribs hurt front to back. He denies? fever chills, does endorse a? 20 lb weight loss in recent weeks stating food does not taste good to him.? He states is a long time smoker who tapered down significantly 8 weeks ago, completely ceased 2 weeks ago.? He denies underlying cardiac or pulmonary disease.? He has received COVID-19 vaccines and a booster and has not had active COVID-19.? Denies headache, or sore throat, nausea or vomiting, dysurea, diarrhea or constipation. Denies orthopnea or upper or lower extremity edema. Chest CTA done in the emergency department did indicate study for pulmonary embolism was negative, but he has a large left pleural effusion and a moderate size pericardial effusion.? He has a collapse of the left lower lobe.? Secretions are in the trachea and bronchi.? It also identified multiple metastatic pulmonary nodules, metastatic mediastinal hilar supraclavicular and perigastric adenopathy and metastatic liver lesions.? It also noted metastatic lesions at T5.? He is afebrile, blood pressure is elevated of 156/90, his heart rate is 112, respiratory rate 26, oxygen saturation of 95% on room air he weighs 73.4 kg with a BMI of 20.7.? He is mildly anemic with a hemoglobin and hematocrit of 11.7 and 34.8 respectively platelet count is 356, does have a mild left shift of 8800, D-dimer was 09/18/2075 though was ruled out for a PE, sodium 123, potassium 4.3, chloride 87, glucose 127, lactate was elevated at 2.3 down from 2.9 on initial presentation to the emergency department, alk-phos 127, troponin was 0.097 now trending down, proBNP is 154, COVID-19 PCR is negative. Discharge Providers <Michael Bonilla DO - Last Filed: 09/01/21 11:16> Provider Date of admission: 08/31/21 19:11 Discharge Date: 09/01/21 Primary care physician: Mich Kraft MD Consults: 09/01/21 01:03 Consult to Respiratory Therapy Evaluate & Treat Comment: SOB w/exertion, walking oxymetry and supp O2 prn Physician Instructions: Evaluate and treat 09/01/21 09:28 Consult to Dietitian, Adult Routine Comment: weight loss within the past several weeks. Reason For Exam: New lung cancer diagnosis. 20 pound weight loss Discharge provider: Michael Bonilla DO Summary <DO Colby Wood Last Filed: 09/01/21 11:16> Hospital Course Discharge Diagnosis: 1. Large left pleural effusion, acute, present on admission, likely malignant. 2. Pericardial effusion, acute, present on admission 3. possible community acquired pneumonia. 4. Unintended weight loss, present on admission 5. Tobacco use. chronic, patient has quit 6. Myocardial injury 7. Hyponatremia, unknown chronicity, present on admission. Hospital Course: This is a 61 year old male who presented with dyspnea on exertion over the course of a few weeks. Found to have likely metastatic lung cancer with pleural and pericardial effusion. He was not hypoxic, but unable to ambulate more than a few feet without symptomatic dyspnea. He had an echocardiogram shortly after admission which showed pericardial effusion with possible early tamponade, he is recommended for pericardiocentesis by the various exceptionalities teacher who read the study which is unable to be performed at [facility]. He did have a positive troponin on admission to 0.100, which improved to 0.097 on repeat, likely in the setting of underlying process. He was scheduled for thoracentesis today, however that is held for need for pericardiocentesis. CT scan also showed likely metastases to the liver and spine (T5). He was empirically started on antibiotics for possible pneumonia, however this is felt to be less likely. Consider stopping antibiotics depending on results of fluid analyses. He was transferred for higher level of care. Patient was also hyponatremic with sodium of 123 which did not improve with initial fluids. Urine studies were ordered but are not returned as of this time. Suspect SIADH is setting of probable lung cancer, fluid restritction was ordered. He has no neurological symptoms currently. Time Spent with Patient Time spent: Greater than 30 minutes <CEE Lizarraga - Last Filed: 09/01/21 23:50> Hospital Course Hospital Course: This is a 61 year old male who presented with dyspnea on exertion over the course of a few weeks. Found to have likely metastatic lung cancer with pleural and pericardial effusion. He was not hypoxic, but unable to ambulate more than a few feet without symptomatic dyspnea. He had an echocardiogram shortly after admission which showed pericardial effusion with possible early tamponade, he is recommended for pericardiocentesis by the various exceptionalities teacher who read the study which is unable to be performed at [facility]. He did have a positive troponin on admission to 0.100, which improved to 0.097 on repeat, likely in the setting of underlying process. He was scheduled for thoracentesis today, however that is held for need for pericardiocentesis. CT scan also showed likely metastases to the liver and spine (T5). He was empirically started on antibiotics for possible pneumonia, however this is felt to be less likely. Consider stopping antibiotics depending on results of fluid analyses. He was transferred for higher level of care. Patient was also hyponatremic with sodium of 123 which did not improve with initial fluids. Urine studies were ordered but are not returned as of this time. Suspect SIADH is setting of probable lung cancer, fluid restriction was ordered. He has no neurological symptoms currently. Status at Discharge Cognitive/behavioral status at discharge: oriented Functional status at discharge: uses cane/walker Overall status at discharge: patient is not back to baseline Exam <Michael Bonilla DO - Last Filed: 09/01/21 11:16> Vital Signs (past 8 hours): - 09/01/21 03:28 09/01/21 08:09 09/01/21 09:00 Temperature 97.9 F 97.4 F L Pulse Rate 105 H 102 H Respiratory Rate 18 22 Blood Pressure 139/96 H 127/90 Pulse Oximetry 93 96 94 09/01/21 09:07 Temperature Pulse Rate 106 H Respiratory Rate 24 Blood Pressure Pulse Oximetry 94 Oxygen Delivery Method Room Air Oxygen Flow Rate 0 Narrative Exam Narrative: Gen: Alert, oriented, cachectic and ill appearing 61 y.o. male, NAD HEENT: normocephalic, atraumatic, conjunctiva clear, sclera non-icteric, oral mucosa pink and moist Neck: supple, full ROM, no JVD, trachea is midline Resp: diffuse rhochi bilateral lungs, decreased breath sounds lower 3/4 of L lung. CV: Tachycardic, no murmur or rubs Abd: soft, non-tender, normoactive BTs Skin: no lesions or rashes, dry and intact Neuro: Alert and oriented X 4 w/no focal deficits. Speech clear and coherent. Extremities: no edema or joint effusions. Psyche: normal mood and affect. Objective <Michael Bonilla, DO - Last Filed: 09/01/21 11:16> Imaging CT scan - chest: Radiologist's impression: 1. No pulmonary embolism. ? 2. Large left pleural effusion.? Moderate pericardial effusion.? Collapse of the left lower lobe.? Secretions in the trachea and bronchi.? Bronchial wall thickening. ? 3. Multiple metastatic pulmonary nodules.? Metastatic mediastinal, hilar, supraclavicular, and perigastric adenopathy. ? 4. Metastatic liver lesions. ? 5. Metastatic lesion at T5.? Echo: Radiologist's impression: [place] [address] Echocardiography Report Signed Patient: Roslyn Baltazar MR#: [id number] : 1960 Acct:[id number] Age/Sex: 61 / M Date of Service: 08/31/21 Loc: 221-1 Accession Number: [id number] ?? Procedure: EC echo doppler complete Ordering Provider: Hal Reynoso MD ? [facility] +---------+? Hospital? +---------+ : ? :? [address] [place] [address]. ? : ? : : ? :? [place], [place] ? : ? : : ? :? [id number] ? : ? : : ? : ? Phone: [phone] : ? : +[phone]? [phone]? +---------+ ? Echocardiogram Report + + :Name: ROSLYN BALTAZAR? Study Date: 09/01/2021 ? Height: 74 in? : :[facility] ? ? ReadingLocation: ? Weight: 157 lb : : ? Gender: Male ? BSA: 2.0 m2? ? : :: 1960? Age: 61 yrs? BP: 123/77 mmHg: :Reason For Study: PERICARDIAL EFFUSION, TAMPONADE? : :Ordering Physician: ANGELES,? : :HAL ? Performed By: Karen Loera? : :Referring: HAL REYNOOS? : + + Interpretation Summary The ejection fraction is estimated to be 55-60%. Diastolic function could not be accurately assessed due to unobtainable data. ? The right ventricle is normal size. The right ventricular systolic function is normal. ? No significant valvular abnormalities. ? Unable to estimate PASP. ? There is a moderate to large pericardial effusion with evidence of early tamponade physiology however no evidence of RV diastolic collapse. ? Result discussed with Dr. Reynoso. ? Procedure: ? A two-dimensional transthoracic echocardiogram with color flow and Doppler was performed. The study quality was technically adequate. There is no prior echocardiogram noted for this patient. The patient was in sinus tachycardia with heart rates between 100-116 bpm during the exam. Left Ventricle: ? The left ventricle is normal in size and wall thickness. The ejection fraction is estimated to be 55-60%. Diastolic function could not be accurately assessed due to unobtainable data. Right Ventricle: ? The right ventricle is normal size. The right ventricular systolic function is normal. Atria: ? The left atrial size is normal. Right atrial size is normal. There is no Doppler evidence for an interatrial shunt. Mitral Valve: ? The mitral valve is normal in structure and function. There is no mitral regurgitation. Aortic Valve: ? The aortic valve is not well visualized. The aortic valve opens well. There is no aortic valve stenosis. No aortic regurgitation is present. Tricuspid Valve: ? The tricuspid valve is not well visualized, but is grossly normal. There is trace tricuspid regurgitation. Pulmonary artery pressures cannot be estimated because of the lack of a measurable TR jet velocity but the IVC suggests a CVP of around 15 mmHg. Pulmonic Valve: ? The pulmonic valve is not well visualized. There is no pulmonic valvular regurgitation. Great Vessels: ? The aortic root is normal size. The dimensions of the ascending aorta are normal. The IVC is dilated (diameter is greater than 2.1 cm) and it collapses less than 50% with a sniff. This suggests a high right atrial pressure of 15 mm Hg. Pericardium/ Pleura ? There is a moderate to large pericardial effusion noted. There is no evidence of right ventricular diastolic collapse however there is evidence of increased RV diastolic diameter with inspiration.. There is >25% inspiratory reduction in mitral peak E wave velocity. The IVC is dilated and does not collapse by 50% with forced inspiration. There is a very large left- sided pleural effusion. ? MMode/2D Measurements & Calculations LVIDd: 3.5 cm? LVOT diam: 2.0 cm LVIDs: 2.6 cm? Ao root diam: 3.3 cm FS: 26.7 % ? asc Aorta Diam: 3.1 cm IVSd: 0.93 cm? Ao Arch Diam (Prox Trans): 3.0 cm LVPWd: 0.91 cm LV poole. diameter/BSA (cm/m^2): 1.8 LV sys. diameter/BSA (cm/m^2): 1.3 ? LA A2 area: 12.4 cm2 ? RA long axis: 4.0 cm LA A4 area: 9.1 cm2? RA area: 9.5 cm2 LA length (vol): 4.0 cm? RA vol: 19.0 ml LA vol: 23.7 ml? RA : 9.7 ml/m2 LA vol index: 12.1 ml/m2 ? IVC diam: 2.4 cm ? RVD1 (basal): 3.0 cm TAPSE: 1.4 cm ? Doppler Measurements & Calculations Ao V2 max: 129.3 cm/sec ? LVOT Max Cesar: 90.4 cm/sec Ao V2 mean: 96.2 cm/sec ? LV V1 max P.3 mmHg Ao max P.7 mmHg ? LV V1 VTI: 14.5 cm Ao mean P.1 mmHg? DIONNE(I,D): 2.4 cm2 Ao V2 VTI: 18.4 cm? DIONNE(V,D): 2.2 cm2 ? sev ratio: 0.79 ? DIONNE indexed to BSA (cm^2/m^2): 1.2 ? MV E max cesar: 53.0 cm/sec ? PA V2 max: 135.0 cm/sec MV A max cesar: 59.6 cm/sec ? PA V2 mean: 77.3 cm/sec MV E/A: 0.89? PA mean P.0 mmHg Med Peak E' Cesar: 8.8 cm/sec ? ? ? PA pr(Accel): 7.1 mmHg E/E' med: 6.0 Lat Peak E' Cesar: 6.3 cm/sec E/E' lat: 8.4 E/e' average: 7.2 MV dec time: 0.18 sec ? SV(LVOT): 44.9 ml ? Reading Physician:09:27 AM Labs Result Diagrams: 09/01/21 06:10 09/01/21 06:10 Labs: Laboratory Results - last 24 hr 08/31/21 08/31/21 08/31/21 11:08 11:30 11:30 WBC 10.4 RBC 4.22 L Hgb 11.7 L Hct 34.8 L MCV 82.3 MCH 27.8 MCHC 33.8 RDW 14.2 Plt Count 356 Neut % (Auto) 84.7 H Lymph % (Auto) 4.8 L [place] % (Auto) 10.2 Eos % (Auto) 0.1 L Baso % (Auto) 0.2 Neut # (Auto) 8800 H Lymph # (Auto) 500 L [place] # (Auto) 1100 H Eos # (Auto) 0 Baso # (Auto) 0 PT INR APTT D-Dimer Sodium 123 L Potassium 4.3 Chloride 87 L Carbon Dioxide 27 BUN 17 Creatinine 0.73 Estimated GFR > 60.0 BUN/Creatinine Ratio 23.3 H Glucose 127 H Lactate Calcium 9.2 Total Bilirubin 1.2 AST 37 ALT 21 Alkaline Phosphatase 127 H Total Creatine Kinase CK-MB (CK-2) CK-MB (CK-2) Rel Index Troponin I NT-Pro-B Natriuret Pep Total Protein 7.0 Albumin 3.5 Globulin 3.5 Albumin/Globulin Ratio 1.0 SARS-CoV-2 (PCR) Negative 08/31/21 08/31/21 08/31/21 11:30 11:30 11:30 WBC RBC Hgb Hct MCV MCH MCHC RDW Plt Count Neut % (Auto) Lymph % (Auto) [place] % (Auto) Eos % (Auto) Baso % (Auto) Neut # (Auto) Lymph # (Auto) [place] # (Auto) Eos # (Auto) Baso # (Auto) PT INR APTT D-Dimer 3376 H Sodium Potassium Chloride Carbon Dioxide BUN Creatinine Estimated GFR BUN/Creatinine Ratio Glucose Lactate 2.9 H Calcium Total Bilirubin AST ALT Alkaline Phosphatase Total Creatine Kinase 30 L CK-MB (CK-2) TNP CK-MB (CK-2) Rel Index TNP Troponin I 0.100 H NT-Pro-B Natriuret Pep 154 H Total Protein Albumin Globulin Albumin/Globulin Ratio SARS-CoV-2 (PCR) 08/31/21 08/31/21 08/31/21 16:15 19:20 22:20 WBC RBC Hgb Hct MCV MCH MCHC RDW Plt Count Neut % (Auto) Lymph % (Auto) [place] % (Auto) Eos % (Auto) Baso % (Auto) Neut # (Auto) Lymph # (Auto) [place] # (Auto) Eos # (Auto) Baso # (Auto) PT INR APTT D-Dimer Sodium Potassium Chloride Carbon Dioxide BUN Creatinine Estimated GFR BUN/Creatinine Ratio Glucose Lactate 2.8 H 2.7 H Calcium Total Bilirubin AST ALT Alkaline Phosphatase Total Creatine Kinase CK-MB (CK-2) CK-MB (CK-2) Rel Index Troponin I 0.097 H NT-Pro-B Natriuret Pep Total Protein Albumin Globulin Albumin/Globulin Ratio SARS-CoV-2 (PCR) 08/31/21 09/01/21 09/01/21 22:25 06:10 06:10 WBC 10.5 RBC 3.84 L Hgb 10.6 L Hct 31.7 L MCV 82.5 MCH 27.6 MCHC 33.4 RDW 14.2 Plt Count 327 Neut % (Auto) 84.0 H Lymph % (Auto) 6.1 L [place] % (Auto) 9.6 Eos % (Auto) 0.2 L Baso % (Auto) 0.1 Neut # (Auto) 8800 H Lymph # (Auto) 600 L [place] # (Auto) 1000 H Eos # (Auto) 0 Baso # (Auto) 0 PT INR APTT D-Dimer Sodium 123 L Potassium 4.8 Chloride 90 L Carbon Dioxide 27 BUN 19 Creatinine 0.72 Estimated GFR > 60.0 BUN/Creatinine Ratio 26.4 H Glucose 112 H Lactate 2.3 H Calcium 8.6 Total Bilirubin AST ALT Alkaline Phosphatase Total Creatine Kinase CK-MB (CK-2) CK-MB (CK-2) Rel Index Troponin I NT-Pro-B Natriuret Pep Total Protein Albumin Globulin Albumin/Globulin Ratio SARS-CoV-2 (PCR) 09/01/21 09/01/21 06:10 09:00 WBC RBC Hgb Hct MCV MCH MCHC RDW Plt Count Neut % (Auto) Lymph % (Auto) [place] % (Auto) Eos % (Auto) Baso % (Auto) Neut # (Auto) Lymph # (Auto) [place] # (Auto) Eos # (Auto) Baso # (Auto) PT 14.9 H INR 1.3 APTT 28 D-Dimer Sodium Potassium Chloride Carbon Dioxide BUN Creatinine Estimated GFR BUN/Creatinine Ratio Glucose Lactate 2.3 H Calcium Total Bilirubin AST ALT Alkaline Phosphatase Total Creatine Kinase CK-MB (CK-2) CK-MB (CK-2) Rel Index Troponin I NT-Pro-B Natriuret Pep Total Protein Albumin Globulin Albumin/Globulin Ratio SARS-CoV-2 (PCR) PFSH <Michael Bonilla DO - Last Filed: 09/01/21 11:16> Medical History Degenerative disc disease Tobacco dependency Surgical History History of testicular surgery Family History Mother COPD (chronic obstructive pulmonary disease) Father Myocardial infarction Social History household members: spouse and children Smoking Status: Current every day smoker alcohol intake: current Discharge Assessment & Plan <Michael Bonilla DO - Last Filed: 09/01/21 11:16> Assessment and Plan Assessment: 1. New diagnosis of lung cancer presumed to be primary 2. Pericardial effusion, acute, requiring peracardiocentesis present on admission 3. Left pleural effusion requiring thoracentesis, present on admission 4. Sepsis in the setting of likely pneumonia and a left pleural effusion, acute, present on admission 5. Unintended weight loss likely due to metastatic process 6. Recent history of tobacco dependency Plan of Treatment: 1. Patient is transferred to [facility] for pericardiocentesis, probable thoracentesis of the left lung pleural effusion, and oncology consult. Dr. Sauceda is the accepting hospitalist. Discharge Plan Discharge Plan Patient Disposition: [facility] Provider Discharge Comment: Please see discharge summary. Patient transferring for pericardiocentesis. Discharge Health Status Multidrug resistant organism: No MDRO Precautions: [place] Diet/Activity/Treatments Diet: Nothing by Mouth Discharge Data Primary Care Provider: Mich Kraft Attending Provider: Hal Reynoso <Michael Bonilla DO - Last Filed: 09/01/21 11:16> VTE Deep Vein Thrombosis/Pulmonary Embolism Present on Admission: No <CEE Lizarraga - Last Filed: 09/01/21 23:50> MIPS - Admit I confirm the patient?s Advance Care Plan is present, Code status is documented, Surrogate decision maker is in patient?s record [If Yes, STOP here]: Yes MIPS - DC The patient has current or prior documentation of left ventricular ejection fraction (LVEF) less than 40%, or moderate or severely depressed left ventricular systolic function.: No
[2021-09-01] MEDS: ALBUTEROL/IPRATROPIUM 3 ML AMPUL INH ×3 (11:36→19:24)
[2021-09-01] MEDS: TRAMADOL 50 MG TABLET PO (14:43)
--- NOTE | 2021-09-01 15:13 | P.PN_ITS ---
Subjective Subjective Date Patient Seen: 09/01/21 Time Patient Seen: 09:15 Interval history: 61 year old male admitted with dyspnea, found to have large pleural and pericardial effusion. He becomes short of breath with minimal exertion today, no chest pain. No fever or chills. Exam Vital Signs (past 8 hours): - 09/01/21 08:09 09/01/21 09:00 09/01/21 09:07 Temperature 97.4 F L Pulse Rate 102 H 106 H Respiratory Rate 22 24 Blood Pressure 127/90 Pulse Oximetry 96 94 94 09/01/21 11:36 09/01/21 12:00 09/01/21 13:00 Temperature 97.8 F Pulse Rate 107 H 100 H Respiratory Rate 22 20 Blood Pressure 129/87 Pulse Oximetry 94 97 94 09/01/21 14:59 Temperature Pulse Rate 110 H Respiratory Rate 20 Blood Pressure Pulse Oximetry 95 Oxygen Delivery Method Room Air Oxygen Flow Rate 0 Narrative Exam Narrative: Gen: Alert, oriented, cachectic and ill appearing 61 y.o. male, NAD HEENT: normocephalic, atraumatic, conjunctiva clear, sclera non-icteric, oral mucosa pink and moist Neck: supple, full ROM, no JVD, trachea is midline Resp: diffuse rhochi bilateral lungs, decreased breath sounds lower 3/4 of L lung. CV: Tachycardic, no murmur or rubs Abd: soft, non-tender, normoactive BTs Skin: no lesions or rashes, dry and intact Neuro: Alert and oriented X 4 w/no focal deficits. Speech clear and coherent. Extremities: no edema or joint effusions. Psyche: normal mood and affect. Objective Labs Result Diagrams: 09/01/21 06:10 09/01/21 06:10 Labs: Laboratory Results - last 24 hr 08/31/21 08/31/21 08/31/21 16:15 19:20 22:20 WBC RBC Hgb Hct MCV MCH MCHC RDW Plt Count Neut % (Auto) Lymph % (Auto) [place] % (Auto) Eos % (Auto) Baso % (Auto) Neut # (Auto) Lymph # (Auto) [place] # (Auto) Eos # (Auto) Baso # (Auto) PT INR APTT Sodium Potassium Chloride Carbon Dioxide BUN Creatinine Estimated GFR BUN/Creatinine Ratio Glucose Lactate 2.8 H 2.7 H Calcium Troponin I 0.097 H 08/31/21 09/01/21 09/01/21 22:25 06:10 06:10 WBC 10.5 RBC 3.84 L Hgb 10.6 L Hct 31.7 L MCV 82.5 MCH 27.6 MCHC 33.4 RDW 14.2 Plt Count 327 Neut % (Auto) 84.0 H Lymph % (Auto) 6.1 L [place] % (Auto) 9.6 Eos % (Auto) 0.2 L Baso % (Auto) 0.1 Neut # (Auto) 8800 H Lymph # (Auto) 600 L [place] # (Auto) 1000 H Eos # (Auto) 0 Baso # (Auto) 0 PT INR APTT Sodium 123 L Potassium 4.8 Chloride 90 L Carbon Dioxide 27 BUN 19 Creatinine 0.72 Estimated GFR > 60.0 BUN/Creatinine Ratio 26.4 H Glucose 112 H Lactate 2.3 H Calcium 8.6 Troponin I 09/01/21 09/01/21 06:10 09:00 WBC RBC Hgb Hct MCV MCH MCHC RDW Plt Count Neut % (Auto) Lymph % (Auto) [place] % (Auto) Eos % (Auto) Baso % (Auto) Neut # (Auto) Lymph # (Auto) [place] # (Auto) Eos # (Auto) Baso # (Auto) PT 14.9 H INR 1.3 APTT 28 Sodium Potassium Chloride Carbon Dioxide BUN Creatinine Estimated GFR BUN/Creatinine Ratio Glucose Lactate 2.3 H Calcium Troponin I [facility] Medical History (Updated 09/01/21 @ 00:23 by CEE Lizarraga) Degenerative disc disease Tobacco dependency Surgical History (Updated 09/01/21 @ 00:23 by CEE Lizarraga) History of testicular surgery Family History (Updated 09/01/21 @ 00:25 by CEE Lizarraga) Mother COPD (chronic obstructive pulmonary disease) Father Myocardial infarction Social History household members: spouse and children Smoking Status: Current every day smoker alcohol intake: current Assessment & Plan Assessment & Plan narrative: 1. Large left pleural effusion, acute, present on admission, likely malignant. - thoracentesis delayed for possible pericardiocentesis and transfer for early tamponade. Patient is hemodynamically stable and cardiology declined transfer today and there are no beds at higher level facilities. - thoracentesis delayed as a result, but will re-attempt later. Studies including cell count, culture, cytology ordered. 2. Pericardial effusion, acute, present on admission - TTE showed early tamponade, but normal RV function. Pending transfer to another facility for pericardiocentesis. Cardiology at [facility] declined transfer today, no beds available along the [place] thus far. 3. possible community acquired pneumonia. - continue antibiotics for possible pneumonia. 4. Unintended weight loss, present on admission - likely due to malignancy. 5. Tobacco use. chronic, patient has quit - patient has stopped, was counseled on cessation as well. 6. Myocardial injury - elevated troponin without chest pain. Peaked at 0.100 and downtrended. EKG without acute ischemia. 7. Hyponatremia, unknown chronicity, present on admission. - urine studies ordered, suspect SIADH. Will place on 1L fluid restriction. Code: Psychological Anthropologist Spent With Patient Critical Care time: I spent a total of [] minutes of critical care time on this patient's care today; this time is exclusive of procedural time. Quality VTE Deep Vein Thrombosis/Pulmonary Embolism Present on Admission: No
[2021-09-01 15:53] LABS: Lactate 2HR (Lactic Acid Rflx) 2.8 mmol/L (0.7-2.1)
[2021-09-01 18:29] LABS: Appearance Urine UA CLOUDY; Bilirubin Urine UA NEGATIVE (NEGATIVE); Color Urine UA YELLOW; Glucose Urine UA NEGATIVE (Negative); Ketones Urine UA TRACE (NEGATIVE); Leukocyte Esterase Urine UA NEGATIVE (NEGATIVE); Nitrite Urine UA NEGATIVE (Negative); Occult Blood Urine UA TRACE-LYSED (Negative); Protein Urine UA TRACE (Negative); Specific Gravity Urine UA >=1.030 (1.000-1.035); Urobilinogen Urine UA 0.2 E.U./dL (0.2); pH Urine UA 5.5 (4.5-8.0)
[2021-09-01 18:37] LABS: Amorphous Sediment Urine 4+; RBC Urine 0-1/HPF (0-5/HPF); Squamous Epithelial Cell Urine 0-1 /HPF (0-5/HPF); WBC Urine 0-1/HPF (0-5/HPF)
[2021-09-01 18:38] LABS: Bacteria Urine None Seen; Culture Indicated Urine Cult Not Indicated; Mucus Urine 1+ (Negative)
[2021-09-01 19:21] LABS: Sodium Urine Random < 5 mmol/L (30-90)
--- NOTE | 2021-09-01 21:17 | PC.NURSE ---
Addendum entered by Melodie Willett R.N. 09/01/21 23:03: Patient transferred to [facility] by EMT's and left at 2254. Report called to Tamanna at [phone]. Original Note: Patient is alert and oriented. Breath sounds (following neb Rx) with inspiratory/expiratory rhonchi throughout right lobes and in left upper lobe, diminished in left mid/lower lobes. Has moist sounding cough which he states is still occasionally productive of white, frothy sputum. States he feels less SOB tonight than on admission but still SOB with activity. Is able to speak in complete sentences. RA sat is 93%. HRR but tachy at 109 bpm and telemetry reading was ST. Denies nausea. BT hypoactive but is passing flatus. Voiding per urinal; denies dysuria. Is able to move himself in bed. Has not been out of bed related to SOB on exertion; has generalized weakness. Denies pain at present time. Is wearing bilateral calf SCD's. Fall risk score is moderate; bed alarm not needed at this time. Informed by Candelario MIKE, that patient will be transferring to [facility] in [place]. ALS expected to be here at 2255. Patient is aware. , Lea, informed of pending transfer.
[2021-09-03 15:18] LABS: Osmolality Urine 979 mOsmol/kg (.)
== END 2021-09-01 22:54 | disposition short-term general hospital (02) | DRG 180 ==
LOC: ED 19:10 → AC 09-01 07:46
PROVIDERS: Internal Medicine; Nurse Practitioner Family; Admitting Provider Internal Medicine; Emergency Provider Emergency Medicine; PCP Family Medicine; Visit Provider Internal Medicine
DX: C34.32 Malignant neoplasm of lower lobe, left bronchus or lung (principal); J18.9 Pneumonia, unspecified organism; I31.3 Pericardial effusion (noninflammatory); J91.0 Malignant pleural effusion; C78.7 Secondary malignant neoplasm of liver and intrahepatic bile duct; C78.00 Secondary malignant neoplasm of unspecified lung; C79.51 Secondary malignant neoplasm of bone; I31.4 Cardiac tamponade; E22.2 Syndrome of inappropriate secretion of antidiuretic hormone; I5A Non-ischemic myocardial injury (non-traumatic); R63.4 Abnormal weight loss; Z68.20 Body mass index [BMI] 20.0-20.9, adult; Z20.822 Contact with and (suspected) exposure to COVID-19; Z87.891 Personal history of nicotine dependence
CPT/HCPCS: 36415; 71046; 71275; 80048; 80053; 81001; 82550; 83605; 83880; 83935; 84300; 84484; 85025; 85379; 85610; 85730; 87040; 87635; 93005; 93010; 93306; 94640; 94760; 96361; 96365; 96367; 99284; 99291; C9803; G0378; J0696; J7613; Q9967